=== PATIENT | female | born 1990 | race Caucasian/White ===

== ENCOUNTER 2017-02-28 10:54 | Emergency (ER) | payer OTHER ==
[~2017-02-28] VITALS: Ht 170.2 cm; Wt 84.4 kg
--- NOTE | 2017-02-28 11:08 | ED SKIN/ALLERGY COMPLAINT ---
History of Present Illness General Chief Complaint: Allergy Symptoms Stated Complaint: ALLERGIC REACTION X 10 MINUTES Source: patient Exam Limitations: no limitations Vital Signs & Intake/Output Vital Signs & Intake/Output Vital Signs Date Time Temp Pulse Resp B/P Pulse O2 O2 Flow FiO2 Ox Delivery Rate 02/28 1228 97.7 80 20 118/85 99 Room Air 02/28 1113 96 Room Air Room Air 02/28 1057 98.3 155 18 132/96 97 Room Air Room Air Allergies Uncoded Allergies: SEAFOOD (Severe, ANAPHYLAXIS 02/28/17) Reconcile Medications Epinephrine (Epipen 2-Onel) 0.3 MG/0.3 ML AUTO.INJCT 1 UNIT SC ONCE PRN ANAPHYLAXIS Methylprednisolone. (Medrol) 4 MG TAB.DS.PK 1 DP PO AD INFLAMMATION 6 on day 1 then reduce by one tablet daily until gone Triage Note: TRIAGE: 26 Y/O FEMALE PRESENTS S/P ALLERGIC REACTION TO SHRIMP. INGESTED SHRIMP THIS MORNING. COVERED IN HIVES TO FACE, ARMS BILATERALLY, TRUNK. 50MG BENADRYL PRIOR TO ARRIVAL. Triage Nurses Notes Reviewed? yes Onset: Abrupt Duration: minute(s): (45) Timing: single episode today Severity: moderate Location: genitalia Modifying Factors: Improves With: antihistamine. Associated Symptoms: change in skin texture, edema, rash, sore throat : No Patient currently breastfeeds: No HPI: 26 year old female presents with allergic reaction to shrimp. She had some shrimp for breakfast and then went on a run. While she was running she states she started to itch and then her face started to swell. She called her boyfriend and then came to the ER. She took 50 mg of benadryl prior to arrival. She endorses lip and tongue swelling, some difficulty swallowing. Past History Travel History Traveled to [place] past 21 day No Medical History Any Pertinent Medical History? 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 No Review of Systems Review of Systems Constitutional: Denies: chills, fever. EENTM: Reports: see HPI (tongue swelling). Respiratory: Reports: short of breath. Denies: cough. Cardiovascular: Denies: chest pain, palpitations. GI: Denies: abdominal pain, nausea, vomiting. Genitourinary: Denies: discharge, dysuria. Musculoskeletal: Reports: no symptoms. Skin: Reports: erythema, rash. Neurological/Psychological: Reports: no symptoms. Hematologic/Endocrine: Denies: bruising, bleeding, polyuria, polydipsia. Immunologic/Allergic: Denies: splenectomy. All Other Systems: Reviewed and Negative Physical Exam Physical Exam General Appearance: well developed/nourished, alert, awake, anxious, mild distress, moderate distress Head: atraumatic Eyes: Bilateral: PERRL, EOMI. Ears, Nose, Throat: normal pharynx, normal ENT inspection, hearing grossly normal Neck: normal inspection, supple, NO STRIDOR Respiratory: normal breath sounds, NO WHEEZING Cardiovascular: regular rate/rhythm Peripheral Pulses: 2+ radial (R), 2+ radial (L) Gastrointestinal: soft, non-tender Back: normal inspection Extremities: normal inspection, normal range of motion, no edema Neurologic/Psych: awake, alert, oriented x 3, normal mood/affect Skin: rash Skin Problem Location: face, neck, upper extremities Skin Problem Character: urticarial Progress Differential Diagnosis: allergic reaction, anaphylaxis, angioedema Plan of Care: Current Medications Sig/Rena Start time Last Medication Dose Stop Time Status Admin Famotidine 20 MG ONCE ONE 02/28 1115 UNVr (Pepcid) 02/29 1116 Methylprednisolone 125 MG ONCE ONE 02/28 1115 UNVr (Solu Medrol) 02/29 1116 11:15 AM IV MEDS ORDERED 12 PM PATIENT FEELING MUCH IMPROVED AFTER IV SOLUMEDROL/PECID. RASH CLEARING. AIRWAY CLEAR, NORMAL OXYGEN SATURATION. WILL CONTINUE TO MONITOR. 1:10 TOLERATING CLEAR LIQUIDS. (RAVINDRA JACKSON,CARISSA) Rhythm Strip: sinus tachycardia Departure Departure Time of Disposition: 1333 Disposition: HOME OR SELF CARE Condition: Stable Clinical Impression Primary Impression: Allergic reaction Referrals: MICHAEL JACKSON,CATIE Latif Additional Instructions: TAKE THE MEDROL DOSE PACK DIRECTED. BENADRYL AND PEPCID OVER THE COUNTER NEEDED. KEEP THE EPIPEN WITH YOU AT ALL TIMES. FOLLOW UP WITH YOUR DOCTOR IN THE OFFICE. RETURN NEEDED. Departure Forms: Customer Survey General Discharge Information Prescriptions: Current Visit Scripts Methylprednisolone. (Medrol) 1 DP PO AD #1 DP 6 on day 1 then reduce by one tablet daily until gone Epinephrine (Epipen 2-Onel) 1 UNIT SC ONCE PRN ANAPHYLAXIS #2 UNIT
[2017-02-28 12:28] VITALS: BP 118/85
[2017-02-28] MEDS ORDERED: MEDROL4 M2 PO (13:11)
[2017-02-28] MEDS ORDERED: EPIPEN 2-P0.3 MG/0.3 SC ×2 (13:14→13:15)
== END 2017-02-28 13:36 ==
LOC: ERH 10:54
DX: T78.1XXA Other adverse food reactions, not elsewhere classified, initial encounter (principal); R21 Rash and other nonspecific skin eruption
CPT/HCPCS: 96374; 96375; J2930